=== PATIENT | male | born 1995 | race Caucasian/White ===

== ENCOUNTER → 2023-03-26 10:29 | Outpatient (CLI) | payer OTHER, SELFPAY ==
[2023-03-26 13:28] LABS: PH,Semen 8.5 (7.3-8.3); Semen Viscosity Clumped (Normal); WBCs,Semen Negative
[2023-03-26 13:29] LABS: 3Hr Motility Quality Moderate Progression (Mod-Rapid); 3Hr Sperm Motility 40 % (50-60); Motility Quality Moderate Progression (Mod-Rapid); Sperm Count 16 mil/mm3 (20-160); Sperm Motility 40 % (50-90)
[2023-03-26 13:50] LABS: Sperm Morphology Head Abnormality (Normal)
== END ==
PROVIDERS: PCP Internal Medicine; Visit Provider Nurse Practitioner Obstetrics & Gynecology
DX: R86.6 Abnormal cytological findings in specimens from male genital organs (principal)
CPT/HCPCS: 89320

== ENCOUNTER 2025-05-29 10:35 | Outpatient (CLI) | payer OTHER, SELFPAY ==
--- NOTE | 2025-05-29 10:37 | US_ITS ---
FINAL REPORT TECHNIQUE: Sonographic images of the thyroid gland were obtained in the longitudinal and transverse planes. CLINICAL HISTORY: SINGLE THYROID NODULE COMPARISON: None FINDINGS: The right lobe measures 1.6 x 1.5 x 4.7 cm. The right lobe is diffusely heterogeneous, without a focal nodule identified. The left lobe measures 1.1 x 1.1 x 4.2 cm. The left lobe is diffusely heterogeneous, without a focal nodule identified. The isthmus measures 4 mm. This is normal. IMPRESSION: Diffusely heterogeneous thyroid gland without focal nodules identified. The overall appearance favors thyroiditis. Reviewed, Interpreted and Dictated by Debbie Sabillon MD Transcribed by Pamela Perez Authenticated and [facility]
== END 2025-05-29 23:59 | disposition home or self-care (01) ==
LOC: RAD 10:35
PROVIDERS: PCP Internal Medicine; Visit Provider Nurse Practitioner
DX: E04.2 Nontoxic multinodular goiter (principal)
CPT/HCPCS: 76536